=== PATIENT | male | born 1975 | race Caucasian/White ===

== ENCOUNTER 2017-11-07 12:41 | Emergency (ER) | payer OTHER ==
[2017-11-07 12:46] VITALS: BP 136/72; PULSE 80; TEMP 98.3; BMI 22.9
[2017-11-07] MEDS ORDERED: KETOROLAC TROMETHAMINE 60 MG/2 ML VIAL IM ONE (13:24)
[2017-11-07] MEDS ORDERED: KETOROLAC TROMETHAMINE 60 MG/2 ML VIAL ONE (13:29)
[2017-11-07] MEDS ORDERED: predniSONE 20 MG TABLET (UD) ONE (13:29)
[2017-11-07] MEDS ORDERED: predniSONE 20 MG TABLET (UD) PO SCH (13:30)
--- NOTE | 2017-11-07 13:30 | PDOC ---
History of Present Illness - General Chief Complaint: Back Pain Stated Complaint: BACK PAIN Time Seen by Provider: 11/07/17 13:05 History Source: Patient Exam Limitations: No Limitations - History of Present Illness Initial Comments: Patient is a 42-year-old male who states that he was lifting a heavy box at work on Saturday when he twisted and he now has pain in the lumbosacral area. Patient denies previous injury or surgeries to his back. He denies urinary symptoms. Patient denies history of IV drug use. Patient denies loss of bowel/ bladder control and denies urinary retention. Patient denies fever. Patient denies lower extremity paresthesia. Patient describes the pain as a throb, worse with movement and rates it at a 5 out of 10. Patient has been attempting Excedrin without success. Last dose was yesterday. Denies any relieving factors. 11/07/17 13:25 Past History - Travel Traveled outside of the country in the last 30 days: No Close contact w/someone who was outside of country & ill: No - Past Medical History Allergies/Adverse Reactions: Allergies Allergy/AdvReac Type Severity Reaction Status Date / Time No Known Allergies Allergy Verified 11/07/17 12:46 Home Medications: Ambulatory Orders Folic Acid - 1 mg PO DAILY #30 tablet 02/17/15 Multivitamins [Multivit ([facility])] 1 tab PO DAILY tab 02/17/15 Nicotine Patch [Nicoderm Patch -] 21 mg TD DAILY #30 patch 02/17/15 Oxycodone HCl 5 mg PO Q4H PRN #30 capsule 02/17/15 Thiamine HCl [Vitamin B1 -] 100 mg PO DAILY #30 tablet 02/17/15 oxyCODONE SR [Oxycontin] 10 mg PO BID #28 tab.er.12h 02/17/15 Anemia: No Asthma: No Cancer: No Cardiac Disorders: No CVA: No COPD: No CHF: No Dementia: No Diabetes: No GI Disorders: No Disorders: No HTN: No Hypercholesterolemia: No Kidney Stones: No Liver Disease: Yes (h/o hepaitis, cirrrhosis) Seizures: No Thyroid Disease: No - Reproductive History Testicular Surgery: No - Immunization History Immunization Up to Date: Yes - Suicide/Smoking/Psychosocial Hx Smoking History: Never smoked Have you smoked in the past 12 months: Yes Number of Cigarettes Smoked Daily: 10 Cigars Per Day: 0 Information on smoking cessation initiated: No 'Breaking Loose' booklet given: 09/25/12 Hx Alcohol Use: Yes (social) Drug/Substance Use Hx: No Substance Use Type: Alcohol, Marijuana Hx Substance Use Treatment: Yes Review of Systems - Review of Systems Able to Perform ROS?: Yes Constitutional: No: Chills, Fever Musculoskeletal: Yes: Back Pain, Muscle Pain All Other Systems: Reviewed and Negative *Physical Exam - Vital Signs Last Vital Signs Temp Pulse Resp BP Pulse Ox 98.3 F 80 20 136/72 99 11/07/17 12:44 11/07/17 12:44 11/07/17 12:44 11/07/17 12:44 11/07/17 12:44 - Physical Exam Comments: Constitutional: VS stated, pt appears in no apparent distress; ambulated to examination room, steady gait noted. Skin: Warm and dry. Intact, no lesions or excoriations. Head: Normocephalic; atraumatic Eyes: conjunctiva pink without injection or discharge. Lungs: Bilateral breath sounds clear upon auscultation. No adventitious breath sounds. Heart: Regular rate and rhythm, S1/S2 auscultated. No murmurs, rubs, or gallops. No visible pulsations, heaves, or lifts on precordium. Abdomen: Soft and non-tender. Bowel sounds present in all 4 quadrants, no hepatosplenomegaly, No bruits auscultated. No guarding or rebound. No masses or visible pulsations present. No suprapubic tenderness. No CVAT. No bruits. Musculoskeletal: Normal curves of cervical, thoracic, and lumbar spine. Full ROM of cervical and lumbar spine. Proximal joints normal; neck, arms, hips, knees, and ankles with full range of active and passive motion. Muscles appear symmetric. Sensation intact medially and laterally. No saddle anesthesia. DTRs+ 2. No tenderness on palpation of spine. 5/5 strength in upper extremities and lower extremity groups. Neurologic: Awake, alert. Conversation fluent. Normal attention. Psychiatric: Appropriate affect. 11/07/17 13:27 Medical Decision Making - Medical Decision Making The patient has no pain upon palpation to the cervical, thoracic or lumbosacral spine. I do not feel x-rays are warranted. Patient also does not have any red flag signs which warrant an emergent MRI. Patient was given Toradol 60mg IM and prednisone 60 mg by mouth. Patient will follow-up with his PCP. Patient was also given ergonomic training. 11/07/17 13:28 *DC/Admit/Observation/Transfer Diagnosis at time of Disposition: Back pain - Discharge Dispostion Disposition: HOME Condition at time of disposition: Stable Decision to Admit order: No - Referrals Referrals: Fredrick Morgan MD [Primary Care Provider] - - Patient Instructions - Post Discharge Activity Forms/Work/School Notes: Back to Work
== END 2017-11-07 13:35 | disposition home or self-care (01) ==
LOC: JER 12:41 → JERFT 12:41
PROC: 3E0233Z Introduction of Anti-inflammatory into Muscle, Percutaneous Approach (ICD-10-PCS; principal; 2017-11-07)
DX: M54.5 Low back pain (principal)
CPT/HCPCS: 99281-25